=== PATIENT | female | born 1995 | race Caucasian/White ===

== ENCOUNTER 2017-03-06 10:41 | Emergency (ER) | payer OTHER ==
[~2017-03-06] VITALS: Ht 165.1 cm; Wt 109.1 kg
[2017-03-06 10:43] VITALS: TEMP 98
[2017-03-06 11:41] LABS: BASO % 0.2 % (0.0-2.0); EOS # 0.2 (0.0-0.7); EOS % 3.2 % (0-4.0); HEMATOCRIT 38.3 % (37.0-47.0); HEMOGLOBIN 12.5 g/dl (12.5-16.0); LYMPH # 1.7 (1.2-3.4); LYMPH % 27.3 % (20.0-51.0); MEAN CELL VOLUME 83 fl (80.0-100.0); MEAN CORPUSCULAR HEMOGLOBIN 27 pg (27.0-31.0); MEAN CORPUSCULAR HGB CONC 33 g/dl (33.0-37.0); MEAN PLATELET VOLUME 10.6 fl (7.4-10.4); MONO # 0.4 (0.1-0.6); PLATELET COUNT 251 K/mm3 (130-400); RED BLOOD COUNT 4.62 M/mm3 (4.10-5.30); REDCELL DISTRIBUTION WIDTH-CV 15.4 % (11.5-14.5); WHITE BLOOD COUNT 6.3 K/mm3 (4.8-10.8)
[2017-03-06 11:57] LABS: ALBUMIN 3.9 gm/dL (3.5-5.0); BILIRUBIN,TOTAL 0.5 mg/dL (0.0-1.0); C-REACTIVE PROTEIN 0.8 mg/dL (0.0-0.9); CALCIUM 8.9 mg/dL (8.4-10.2); CREATININE, serum 0.57 mg/dL (0.52-1.25); POTASSIUM 4.1 mmol/L (3.4-5.0); TOTAL PROTEIN 7.4 gm/dL (6.4-8.2)
[2017-03-06] MEDS ORDERED: ZOFRAN 4MG T4 MG/TAB PO (12:12)
[2017-03-06] MEDS ORDERED: NORCO 325 MG-51 TAB PO (12:12)
[2017-03-06 12:26] LABS: PH 6 (5-8); URINE APPEARANCE Clear; URINE BACTERIA None Seen /hpf; URINE BILIRUBIN Negative (NEGATIVE); URINE BLOOD Negative (NEGATIVE); URINE COLOR Yellow; URINE GLUCOSE Negative (NEGATIVE); URINE KETONE Negative (NEGATIVE); URINE RBC 0-2 /hpf; URINE UROBILINOGEN Negative (NEGATIVE)
[2017-03-06 12:52] VITALS: BP 11/64; PULSE 79
== END 2017-03-06 12:59 | disposition home or self-care (01) ==
LOC: COL.ER 10:41
PROVIDERS: Nurse Practitioner
DX: R10.11 Right upper quadrant pain (principal); R11.0 Nausea; R63.0 Anorexia; K80.20 Calculus of gallbladder without cholecystitis without obstruction
CPT/HCPCS: J2405; J3010; J7030

== ENCOUNTER 2017-11-30 13:05 | Emergency (ER) | payer OTHER ==
[~2017-11-30] VITALS: Ht 152.4 cm; Wt 127.3 kg
[~2017-11-30 13:05] MED LIST: NORCO 325 MG-51 TAB PO; ZOFRAN 4MG T4 MG/TAB PO
[2017-11-30 14:18] LABS: BASO % 0.3 % (0.0-2.0); EOS # 0.3 (0.0-0.7); EOS % 2.4 % (0-4.0); GRAN # 8.9 (1.4-6.5); GRAN % 74.8 % (42.2-75.2); HEMOGLOBIN 13.6 g/dl (12.5-16.0); LYMPH # 1.8 (1.2-3.4); LYMPH % 15.3 % (20.0-51.0); MEAN CELL VOLUME 84 fl (80.0-100.0); MEAN CORPUSCULAR HEMOGLOBIN 28 pg (27.0-31.0); MEAN CORPUSCULAR HGB CONC 33 g/dl (33.0-37.0); MEAN PLATELET VOLUME 10.8 fl (7.4-10.4); MONO # 0.8 (0.1-0.6); MONO % 6.9 % (1.7-9.3); PLATELET COUNT 258 K/mm3 (130-400); RED BLOOD COUNT 4.89 M/mm3 (4.10-5.30)
[2017-11-30] MEDS ORDERED: CLEOCIN HC150 MG/CAP PO (14:18)
[2017-11-30] MEDS ORDERED: NORCO 325 MG-51 TAB PO (14:18)
[2017-11-30 14:36] LABS: CALCIUM 9.3 mg/dL (8.4-10.2); CREATININE, serum 0.77 mg/dL (0.52-1.25)
[2017-11-30 16:27] VITALS: BP 101/59; PULSE 95; TEMP 97.4
== END 2017-11-30 16:30 | disposition home or self-care (01) ==
LOC: COL.ER 13:05
PROVIDERS: Physician Assistant
DX: J36 Peritonsillar abscess (principal)
CPT/HCPCS: J1100; J2405; J7030

== ENCOUNTER 2018-04-11 16:54 | Emergency (ER) | payer OTHER ==
[~2018-04-11] VITALS: Ht 165.1 cm; Wt 109.1 kg
[~2018-04-11 16:54] MED LIST changes: +CLEOCIN HC150 MG/CAP PO
[2018-04-11 17:00] VITALS: BP 136/82; TEMP 97.5
[2018-04-11] MEDS ORDERED: AMOXICILLIN 8751 TAB PO ×2 (17:42→18:14)
[2018-04-11 18:18] VITALS: PULSE 89
== END 2018-04-11 18:19 | disposition home or self-care (01) ==
LOC: COL.ER 16:54
DX: S60.051A Contusion of right little finger without damage to nail, initial encounter (principal); K08.89 Other specified disorders of teeth and supporting structures; J45.909 Unspecified asthma, uncomplicated; F17.210 Nicotine dependence, cigarettes, uncomplicated; W22.8XXA Striking against or struck by other objects, initial encounter

== ENCOUNTER 2018-05-09 00:07 | Emergency (ER) | payer OTHER ==
[~2018-05-09] VITALS: Ht 165.1 cm; Wt 109.1 kg
[~2018-05-09 00:07] MED LIST changes: +AMOXICILLIN 8751 TAB PO
[2018-05-09 00:12] VITALS: TEMP 98
[2018-05-09] MEDS ORDERED: FLEXERIL 1010 MG/TAB PO (02:40)
[2018-05-09 03:00] VITALS: BP 122/76; PULSE 77
== END 2018-05-09 03:00 | disposition home or self-care (01) ==
LOC: COL.ER 00:07
DX: S13.4XXA Sprain of ligaments of cervical spine, initial encounter (principal); S33.9XXA Sprain of unspecified parts of lumbar spine and pelvis, initial encounter; F17.210 Nicotine dependence, cigarettes, uncomplicated; Z98.51 Tubal ligation status; V49.49XA Driver injured in collision with other motor vehicles in traffic accident, initial encounter
CPT/HCPCS: J1885; J2360

== ENCOUNTER 2018-06-17 08:12 | Emergency (ER) | payer OTHER ==
[~2018-06-17] VITALS: Ht 165.1 cm; Wt 118.2 kg
[~2018-06-17 08:12] MED LIST changes: +FLEXERIL 1010 MG/TAB PO
[2018-06-17 08:14] VITALS: TEMP 98.1
[2018-06-17 09:11] LABS: BASO % 0.1 % (0.0-2.0); EOS # 0.2 (0.0-0.7); EOS % 3.1 % (0-4.0); GRAN # 3.7 (1.4-6.5); GRAN % 50.3 % (42.2-75.2); HEMOGLOBIN 12.7 g/dl (12.5-16.0); LYMPH # 2.9 (1.2-3.4); LYMPH % 39.6 % (20.0-51.0); MEAN CELL VOLUME 84 fl (80.0-100.0); MEAN CORPUSCULAR HEMOGLOBIN 28 pg (27.0-31.0); MEAN CORPUSCULAR HGB CONC 33 g/dl (33.0-37.0); MEAN PLATELET VOLUME 10.8 fl (7.4-10.4); MONO # 0.5 (0.1-0.6); MONO % 6.8 % (1.7-9.3); PLATELET COUNT 234 K/mm3 (130-400); RED BLOOD COUNT 4.53 M/mm3 (4.10-5.30); REDCELL DISTRIBUTION WIDTH-CV 14.3 % (11.5-14.5)
[2018-06-17 09:24] LABS: COLLECTION METHOD CLEAN CATCH
[2018-06-17 09:26] LABS: ALBUMIN 3.4 gm/dL (3.5-5.0); BILIRUBIN,TOTAL 0.1 mg/dL (0.0-1.0); CALCIUM 8.7 mg/dL (8.4-10.2); CREATININE, serum 0.67 mg/dL (0.52-1.25); POTASSIUM 3.2 mmol/L (3.4-5.0)
[2018-06-17 09:35] LABS: MUCOUS Present /lpf; PH 5 (5-8); SQUAMOUS EPITHELIAL 20-50 /hpf; URINE APPEARANCE Cloudy; URINE BACTERIA None Seen /hpf; URINE BILIRUBIN Positive (NEGATIVE); URINE BLOOD Negative (NEGATIVE); URINE CALCIUM OXALATE CRYSTAL Present /hpf; URINE COLOR Amber; URINE GLUCOSE Negative (NEGATIVE); URINE KETONE Trace (NEGATIVE); URINE LEUKOCYTE ESTERASE Negative (NEGATIVE); URINE NITRATE Negative (NEGATIVE); URINE PROTEIN(semi-quant) 1+ (NEGATIVE)
[2018-06-17 10:23] VITALS: BP 120/68; PULSE 80
== END 2018-06-17 10:29 | disposition home or self-care (01) ==
LOC: COL.ER 08:12
PROVIDERS: Nurse Practitioner
DX: M54.89 Other dorsalgia (principal); R42 Dizziness and giddiness; G43.909 Migraine, unspecified, not intractable, without status migrainosus; F17.210 Nicotine dependence, cigarettes, uncomplicated; Z98.890 Other specified postprocedural states; Z98.51 Tubal ligation status
CPT/HCPCS: J1885; J2360

== ENCOUNTER 2018-09-17 22:30 | Emergency (ER) | payer OTHER ==
[~2018-09-17] VITALS: Ht 165.1 cm; Wt 104.5 kg
[2018-09-17] MEDS ORDERED: IBU400 MG PO (22:38)
[2018-09-17 23:31] VITALS: BP 105/75; PULSE 89; TEMP 97.7
== END 2018-09-17 23:35 | disposition home or self-care (01) ==
LOC: COL.ER 22:30
DX: S93.402A Sprain of unspecified ligament of left ankle, initial encounter (principal); F17.210 Nicotine dependence, cigarettes, uncomplicated; W10.9XXA Fall (on) (from) unspecified stairs and steps, initial encounter

== ENCOUNTER 2018-10-19 17:45 | Emergency (ER) | payer OTHER ==
[~2018-10-19] VITALS: Ht 165.1 cm; Wt 109.1 kg
[~2018-10-19 17:45] MED LIST changes: +IBU400 MG PO
[2018-10-19 17:49] VITALS: TEMP 98
[2018-10-19 18:23] LABS: BASO % 0.1 % (0.0-2.0); EOS # 0.1 (0.0-0.7); EOS % 0.7 % (0-4.0); GRAN # 6.5 (1.4-6.5); HEMATOCRIT 41.6 % (37.0-47.0); HEMOGLOBIN 13.7 g/dl (12.5-16.0); LYMPH # 1.5 (1.2-3.4); LYMPH % 18.1 % (20.0-51.0); MEAN CELL VOLUME 85 fl (80.0-100.0); MEAN CORPUSCULAR HEMOGLOBIN 28 pg (27.0-31.0); MEAN CORPUSCULAR HGB CONC 33 g/dl (33.0-37.0); MEAN PLATELET VOLUME 10.6 fl (7.4-10.4); MONO # 0.4 (0.1-0.6); PLATELET COUNT 265 K/mm3 (130-400); RED BLOOD COUNT 4.88 M/mm3 (4.10-5.30); REDCELL DISTRIBUTION WIDTH-CV 13.4 % (11.5-14.5)
[2018-10-19 18:25] LABS: COLLECTION METHOD CLEAN CATCH
[2018-10-19 18:33] LABS: ALBUMIN 4.1 gm/dL (3.5-5.0); BILIRUBIN,TOTAL 0.4 mg/dL (0.0-1.0); CALCIUM 9.8 mg/dL (8.4-10.2); CREATININE, serum 0.72 mg/dL (0.52-1.25); POTASSIUM 4.1 mmol/L (3.4-5.0); TOTAL PROTEIN 7.9 gm/dL (6.4-8.2)
[2018-10-19 18:36] LABS: MUCOUS Present /lpf; PH 5 (5-8); SQUAMOUS EPITHELIAL 20-50 /hpf; URINE APPEARANCE Cloudy; URINE BACTERIA Rare /hpf; URINE BILIRUBIN Negative (NEGATIVE); URINE BLOOD 2+ (NEGATIVE); URINE COLOR Amber; URINE GLUCOSE Negative (NEGATIVE); URINE KETONE Negative (NEGATIVE); URINE LEUKOCYTE ESTERASE Negative (NEGATIVE); URINE NITRATE Negative (NEGATIVE); URINE PROTEIN(semi-quant) 1+ (NEGATIVE)
[2018-10-19 20:20] VITALS: BP 119/72; PULSE 70
== END 2018-10-19 20:21 | disposition home or self-care (01) ==
LOC: COL.ER 17:45
PROVIDERS: Emergency Medicine
DX: R10.11 Right upper quadrant pain (principal); H10.9 Unspecified conjunctivitis; F17.210 Nicotine dependence, cigarettes, uncomplicated; Z98.890 Other specified postprocedural states
CPT/HCPCS: J2765; J3010; J7030

== ENCOUNTER 2019-01-19 12:01 | Emergency (ER) | payer SELFPAY ==
[~2019-01-19] VITALS: Ht 165.1 cm; Wt 100.0 kg
[2019-01-19 12:04] VITALS: TEMP 98.4
[2019-01-19] MEDS ORDERED: AMOXICILLIN 8751 TAB PO (13:53)
[2019-01-19 13:58] VITALS: BP 148/90; PULSE 97
== END 2019-01-19 13:58 | disposition home or self-care (01) ==
LOC: COL.ER 12:01
DX: S02.5XXA Fracture of tooth (traumatic), initial encounter for closed fracture (principal); K04.7 Periapical abscess without sinus; K02.9 Dental caries, unspecified; Z98.51 Tubal ligation status; X58.XXXA Exposure to other specified factors, initial encounter
CPT/HCPCS: J1885

== ENCOUNTER 2019-02-05 03:13 | Emergency (ER) | payer OTHER ==
[~2019-02-05] VITALS: Ht 165.1 cm; Wt 109.1 kg
[2019-02-05 03:17] VITALS: BP 130/80; TEMP 97.6
[2019-02-05] MEDS ORDERED: ADVIL LIQUI-GE200 MG PO (03:33)
[2019-02-05] MEDS ORDERED: PEN-VEE K500 MG PO (03:34)
[2019-02-05 03:50] VITALS: PULSE 95
== END 2019-02-05 04:00 | disposition home or self-care (01) ==
LOC: COL.ER 03:13
DX: K02.9 Dental caries, unspecified (principal); R07.81 Pleurodynia; F17.210 Nicotine dependence, cigarettes, uncomplicated

== ENCOUNTER 2019-02-24 05:59 | Emergency (ER) | payer OTHER ==
[~2019-02-24] VITALS: Ht 165.1 cm; Wt 109.1 kg
[~2019-02-24 05:59] MED LIST changes: +ADVIL LIQUI-GE200 MG PO; +PEN-VEE K500 MG PO
[2019-02-24 06:08] VITALS: BP 126/79; TEMP 97.4
[2019-02-24] MEDS ORDERED: ZITHROMAX Z PA250 MG PO (06:43)
[2019-02-24 06:50] VITALS: PULSE 95
== END 2019-02-24 06:50 | disposition home or self-care (01) ==
LOC: COL.ER 05:59
DX: J06.9 Acute upper respiratory infection, unspecified (principal); H66.91 Otitis media, unspecified, right ear; F17.210 Nicotine dependence, cigarettes, uncomplicated; E66.9 Obesity, unspecified; Z68.41 Body mass index [BMI] 40.0-44.9, adult; Z98.51 Tubal ligation status; Z98.890 Other specified postprocedural states

== ENCOUNTER 2019-03-26 14:35 | Emergency (ER) | payer SELFPAY ==
[~2019-03-26] VITALS: Ht 165.1 cm; Wt 100.0 kg
[~2019-03-26 14:35] MED LIST changes: +ZITHROMAX Z PA250 MG PO
[2019-03-26 14:50] VITALS: TEMP 97.6
[2019-03-26 15:05] LABS: COLLECTION METHOD CLEAN CATCH
[2019-03-26 15:55] LABS: MUCOUS Present /lpf; PH 6 (5-8); URINE APPEARANCE Cloudy; URINE BACTERIA None Seen /hpf; URINE BILIRUBIN Negative (NEGATIVE); URINE BLOOD 1+ (NEGATIVE); URINE COLOR Yellow; URINE GLUCOSE Negative (NEGATIVE); URINE KETONE Negative (NEGATIVE); URINE LEUKOCYTE ESTERASE 2+ (NEGATIVE); URINE NITRATE Negative (NEGATIVE); URINE PROTEIN(semi-quant) 2+ (NEGATIVE); URINE RBC >50 /hpf; URINE UROBILINOGEN Negative (NEGATIVE)
[2019-03-26] MEDS ORDERED: PYRIDIUM200 M1 PO (16:43)
[2019-03-26] MEDS ORDERED: OMNICEF 300MG300 MG PO (16:43)
[2019-03-26 17:30] VITALS: BP 116/73; PULSE 91
[2019-03-28] MEDS ORDERED: CIPRO 500MG TA500 MG PO (15:09)
== END 2019-03-26 17:31 | disposition home or self-care (01) ==
LOC: COL.ER 14:35
PROVIDERS: Family Medicine
DX: N39.0 Urinary tract infection, site not specified (principal); F17.210 Nicotine dependence, cigarettes, uncomplicated; Z98.51 Tubal ligation status; Z98.890 Other specified postprocedural states
CPT/HCPCS: J0696; J1885

== ENCOUNTER 2019-05-01 07:58 | Emergency (ER) | payer MEDICAID ==
[~2019-05-01] VITALS: Ht 165.1 cm; Wt 104.5 kg
[~2019-05-01 07:58] MED LIST changes: +CIPRO 500MG TA500 MG PO; +OMNICEF 300MG300 MG PO; +PYRIDIUM200 M1 PO
[2019-05-01 08:12] VITALS: TEMP 97.8
[2019-05-01] MEDS ORDERED: ALBUTEROL0.83 MG/ML IH (09:43)
[2019-05-01] MEDS ORDERED: PREDNISONE20 MG PO (09:45)
[2019-05-01] MEDS ORDERED: NEB MC (09:45)
[2019-05-01 10:34] VITALS: BP 135/72; PULSE 109
== END 2019-05-01 10:55 | disposition home or self-care (01) ==
LOC: COL.ER 07:58
DX: J45.901 Unspecified asthma with (acute) exacerbation (principal); J06.9 Acute upper respiratory infection, unspecified; F17.210 Nicotine dependence, cigarettes, uncomplicated; Z98.51 Tubal ligation status; Z98.890 Other specified postprocedural states
CPT/HCPCS: J1100

== ENCOUNTER 2019-06-23 10:04 | Emergency (ER) | payer MEDICAID ==
[~2019-06-23] VITALS: Ht 165.1 cm; Wt 113.6 kg
[~2019-06-23 10:04] MED LIST changes: +ALBUTEROL0.83 MG/ML IH; +NEB MC; +PREDNISONE20 MG PO
[2019-06-23 10:31] VITALS: TEMP 97.2
[2019-06-23 12:26] LABS: COLLECTION METHOD CLEAN CATCH
[2019-06-23 12:46] LABS: ALBUMIN 3.9 gm/dL (3.5-5.0); BILIRUBIN,TOTAL 0.2 mg/dL (0.0-1.0); CALCIUM 9.1 mg/dL (8.4-10.2); CREATININE, serum 0.63 (0.52-1.25); POTASSIUM 4.3 mmol/L (3.4-5.0); TOTAL PROTEIN 7.2 gm/dL (6.4-8.2)
[2019-06-23 13:07] LABS: BASO % 0.3 % (0.0-2.0); EOS # 0.2 (0.0-0.7); EOS % 2.6 % (0-4.0); GRAN % 63.9 % (42.2-75.2); HEMATOCRIT 38.4 % (37.0-47.0); HEMOGLOBIN 12.7 g/dl (12.5-16.0); LYMPH # 1.7 (1.2-3.4); MEAN CELL VOLUME 86 fl (80.0-100.0); MEAN CORPUSCULAR HEMOGLOBIN 28 pg (27.0-31.0); MEAN CORPUSCULAR HGB CONC 33 g/dl (33.0-37.0); MEAN PLATELET VOLUME 10.2 fl (7.4-10.4); MONO # 0.4 (0.1-0.6); PLATELET COUNT 266 K/mm3 (130-400); RED BLOOD COUNT 4.49 M/mm3 (4.10-5.30)
[2019-06-23 13:29] LABS: MUCOUS Present /lpf; PH 5 (5-8); URINE APPEARANCE Hazy; URINE BACTERIA Rare /hpf; URINE BILIRUBIN Negative (NEGATIVE); URINE BLOOD Negative (NEGATIVE); URINE COLOR Yellow; URINE GLUCOSE Negative (NEGATIVE); URINE KETONE Negative (NEGATIVE); URINE LEUKOCYTE ESTERASE 1+ (NEGATIVE); URINE NITRATE Negative (NEGATIVE); URINE PROTEIN(semi-quant) Negative (NEGATIVE); URINE RBC 0-2 /hpf; URINE UROBILINOGEN Negative (NEGATIVE)
[2019-06-23] MEDS ORDERED: ZOFRAN ODT4 MG PO (14:35)
[2019-06-23 14:48] VITALS: BP 128/81; PULSE 84
== END 2019-06-23 14:48 | disposition home or self-care (01) ==
LOC: COL.ER 10:04
PROVIDERS: Emergency Medicine; Nurse Practitioner
DX: R19.7 Diarrhea, unspecified (principal); R11.10 Vomiting, unspecified; F17.210 Nicotine dependence, cigarettes, uncomplicated; Z98.51 Tubal ligation status; Z98.890 Other specified postprocedural states; Z86.61 Personal history of infections of the central nervous system
CPT/HCPCS: J1885; J2405; J7030

== ENCOUNTER 2019-07-16 14:00 | Outpatient (RCR) | payer OTHER, MEDICAID ==
[~2019-07-16 14:00] MED LIST changes: +ZOFRAN ODT4 MG PO; +ZOVIRAX400 MG PO
== END 2019-08-05 | disposition home or self-care (01) ==
LOC: WSC
DX: M54.5 Low back pain (principal); M54.2 Cervicalgia; M25.512 Pain in left shoulder; M25.572 Pain in left ankle and joints of left foot; V89.2XXA Person injured in unspecified motor-vehicle accident, traffic, initial encounter

== ENCOUNTER 2019-07-21 20:41 | Emergency (ER) | payer MEDICAID ==
[~2019-07-21] VITALS: Ht 165.1 cm; Wt 118.2 kg
[2019-07-21 20:46] VITALS: BP 119/78; TEMP 97.6
[2019-07-21 22:16] VITALS: PULSE 99
== END 2019-07-21 22:16 | disposition home or self-care (01) ==
LOC: COL.ER 20:41
DX: S62.306A Unspecified fracture of fifth metacarpal bone, right hand, initial encounter for closed fracture (principal); J45.909 Unspecified asthma, uncomplicated; W22.8XXA Striking against or struck by other objects, initial encounter; Y92.009 Unspecified place in unspecified non-institutional (private) residence as the place of occurrence of the external cause
CPT/HCPCS: Q4021

== ENCOUNTER 2020-03-18 16:23 | Emergency (ER) | payer MEDICAID ==
[~2020-03-18] VITALS: Ht 165.1 cm; Wt 109.1 kg
[~2020-03-18 16:23] MED LIST changes: +DOXYCYCLINE 10100 MG PO
[2020-03-18 16:44] VITALS: BP 110/76; TEMP 97.5
[2020-03-18] MEDS ORDERED: PROAIR HFA0.09 MG/AC IH (18:06)
[2020-03-18 18:26] VITALS: PULSE 96
== END 2020-03-18 18:26 | disposition home or self-care (01) ==
LOC: COL.ER 16:23
DX: R06.02 Shortness of breath (principal); F41.9 Anxiety disorder, unspecified; J45.909 Unspecified asthma, uncomplicated; F17.210 Nicotine dependence, cigarettes, uncomplicated; Z98.51 Tubal ligation status

== ENCOUNTER 2020-07-12 21:46 | Emergency (ER) | payer MEDICAID ==
[~2020-07-12] VITALS: Ht 165.1 cm; Wt 109.1 kg
[~2020-07-12 21:46] MED LIST changes: +PROAIR HFA0.09 MG/AC IH
[2020-07-12 21:54] VITALS: TEMP 98.3
[2020-07-12] MEDS ORDERED: MOTRIN 800800 MG/TAB PO (22:57)
[2020-07-12] MEDS ORDERED: FLEXERIL 1010 MG/TAB PO (22:57)
[2020-07-12 23:07] VITALS: BP 152/87; PULSE 100
== END 2020-07-12 23:08 | disposition home or self-care (01) ==
LOC: COL.ER 21:46
DX: S96.911A Strain of unspecified muscle and tendon at ankle and foot level, right foot, initial encounter (principal); S29.019A Strain of muscle and tendon of unspecified wall of thorax, initial encounter; J45.909 Unspecified asthma, uncomplicated; V48.5XXA Car driver injured in noncollision transport accident in traffic accident, initial encounter
CPT/HCPCS: J1885